=== PATIENT | male | born 1960 | race Caucasian/White ===

== ENCOUNTER → 2024-07-04 07:00 | Outpatient (REF) | payer OTHER, SELFPAY | LOC: DHCBC/DCA 07:00 | PROVIDERS: ATTENDING PHYSICIAN Internal Medicine Cardiovascular Disease; FAMILY PHYSICIAN Internal Medicine | DX: I25.10 Atherosclerotic heart disease of native coronary artery without angina pectoris (principal); I10 Essential (primary) hypertension | CPT/HCPCS: 78452; 93017; A9500; J2785 ==

== ENCOUNTER 2025-02-04 09:12 | Emergency (ER) | payer OTHER, SELFPAY ==
[2025-02-04 09:16] VITALS: BP 136/74
[2025-02-04] MEDS: VALIUM 5 MG PO (09:56)
[2025-02-04] MEDS: DECADRON 10 MG PO (09:56)
[2025-02-04] MEDS: TORADOL 30 MG IM (09:58)
--- NOTE | 2025-02-04 10:00 | ED.GENMED ---
History of Present Illness
General
Chief Complaint: Back Pain
Source: patient
Exam Limitations: none
Time Seen by Provider: 02/04/25 09:19
Nursing documentation reviewed up to this point in time: agreed with
History of Present Illness
History of Present Illness:
64-year-old male with history of HTN, renal failure with kidney transplant 9 years ago, hep C presents with gradually increasing left lower back pain over the past week with radiation down the left buttock. No recollection of overuse or injury
however he does play pickle ball on a consistent basis. The pain is worse with sitting or laying. It is relieved with standing and is now 2-3/10 while standing. He has been unable to sleep the past couple of nights due to the pain. Tylenol is
not helping. He denies loss of bowel or bladder control, weakness in his legs or saddle anesthesia. He denies fever or chills.
Past History
Past History
ED Past Medical History: HTN, Hypercholesterolemia and Other (ESRD, kidney transplant 08/10/2016 with a hepatitis C kidney)
ED Past Surgical History: None and Urological
Social History
Tobacco: Non-smoker
Alcohol: None
Drug: None
Personal:
Living: other (significant other)
Employment: Employed
Family History
Family History: CAD
Review of Systems
Review of Systems
Allergies reviewed?: Yes
All Other Systems: ROS reviewed and negative except as documented in HPI and ROS
Constitutional: Denies fever
Respiratory: Denies trouble breathing
Cardiac: Denies chest pain
ABD/GI: Denies abdominal pain or nausea
: Denies dysuria, frequency, incontinence or difficulty voiding
Musculoskeletal: Reports back pain (Left lower back and buttock)
Skin: Reports no symptoms
Neurological: Reports no symptoms
Phy Exam
Physical Exam
Physical Exam:
GENERAL: No acute distress. A&Ox3.
CONSTITUTIONAL: Afebrile.
EYES: clear, conjunctivae normal
ENMT: moist mucus membranes
RESPIRATORY: Regular respirations, nonlabored, lungs clear.
CARDIOVASCULAR: Regular rate and rhythm, no murmurs, no rubs.
GI: Soft, nontender, normal BS
MUSCULOSKELETAL: Tender to palpate just to the left of the lower lumbar spine, also the mid buttock area. Adequate range of motion of the spine with pain aggravated by rotating the torso toward the left. Negative bilateral straight leg raise.
Moves with ease. Well perfused.
SKIN: Warm, dry, pink
PSYCH: Normal mood and affect. Well kept, interactive and appropriate
NEUROLOGIC: Awake, alert and oriented. No focal neurological deficits. Strength equal throughout. Ambulates well with steady gait.
Course
Orders/Labs/Results
Orders:
Orders
02/04/25 09:39
Ketorolac [Toradol] 30 mg IM NOW STA
02/04/25 09:46
Dexamethasone [Decadron] 10 mg PO NOW STA
Diazepam [Valium] 5 mg PO NOW STA
Vital Signs
Initial and Last Documented VS:
Initial Vital Signs
Temp Pulse Resp BP Pulse Ox
97.6 F 74 16 136/74 98
02/04/25 09:16 02/04/25 09:16 02/04/25 09:16 02/04/25 09:16 02/04/25 09:16
Last Documented Vital Signs
Temp Pulse Resp BP Pulse Ox
97.6 F 74 16 136/74 98
02/04/25 09:16 02/04/25 09:16 02/04/25 09:16 02/04/25 09:16 02/04/25 09:16
MDM/Problems Addressed
Differential Diagnosis Includes:
low back strain, sciatica
MDM/Problems Addressed:
64-year-old male with history of HTN, renal failure with kidney transplant 9 years ago, hep C presents with gradually increasing left lower back pain over the past week with radiation down the left buttock. No recollection of overuse or injury
however he does play pickle ball on a consistent basis. The pain is worse with sitting or laying. It is relieved with standing and is now 2-3/10 while standing. He has been unable to sleep the past couple of nights due to the pain. Tylenol is
not helping. He denies loss of bowel or bladder control, weakness in his legs or saddle anesthesia. He denies fever or chills.
Afebrile, NAD
Hx and exam consistent with left low back strain and left sciatica
No neurological deficits. Ambulating well.
*Critical Care Note
Total Time (30-74mins, 75-104mins- exclusive of procedures): Not Applicable
ED Attending Note
-
Portions of this chart may have been created with voice recognition software.� Occasional wrong word or��sound alike� substitutions may have occurred due to the inherent limitations of voice recognition software.
Discharge Plan
Departure
Patient Disposition: Home (Routine Discharge)
Date of Disposition: 02/04/25
Time of Disposition: 10:18
Patient with high blood pressure during this ER visit?: No
Condition: Good
Discharge Problem:
Low back pain, Acute left-sided back pain with sciatica
Instructions: Low Back Pain (DC), Sciatica (DC)
Prescriptions:
New
cyclobenzaprine 10 mg tablet
10 mg PO TID PRN (Reason: back pain/spasms) Qty: 30 0RF
prednisone 20 mg tablet
40 mg PO DAILY Qty: 6 0RF
No Action
multivitamin 1 EACH tablet
1 ea PO DAILY
carvedilol [Coreg] 25 MG tablet
25 mg PO Q12
prednisone 5 MG tablet
5 mg PO DAILY
nifedipine 30 MG tablet extended release
30 mg PO DAILY
mycophenolate mofetil 500 MG tablet
250 mg PO BID
nifedipine 60 MG tablet extended release 24hr
60 mg PO HS
tacrolimus 1 MG capsule
1 mg PO DAILY
tacrolimus 1 MG capsule
0.5 mg PO HS
losartan 25 MG tablet
25 mg PO DAILY
atorvastatin 40 MG tablet
40 mg PO QPM Qty: 30 11RF
Rx Instructions:
Atorvastatin replaces pravastatin
aspirin 81 MG tablet,chewable
81 mg PO DAILY 0RF
ticagrelor [Brilinta] 90 MG tablet
90 mg PO BID Qty: 60 11RF
Referrals:
Your, Doctor [Other] - As needed
Activity Restrictions/Additional Instructions:
As we discussed, I sent a prescription to your pharmacy for prednisone to take 40 mg a day for 3 days. Start it tomorrow as you were given a dose of steroid here today
I also sent a prescription for Flexeril which is cyclobenzaprine, a muscle relaxant. Flexeril can make you sleepy and slow the reflexes so do not drive or operate any machinery within 8 hours of taking it.
Tylenol as needed for pain
See your doctor for recheck if you are not much improved within the next 10 to 14 days.
Interventions
Interventions:
*Risk Screen - Suicide Last Done: 02/04/25 09:16
*General Assessment Last Done: 02/04/25 10:09
*Neglect/Abuse Screening Last Done: 02/04/25 09:16
*ED- Fall Risk Assessment Last Done: 02/04/25 10:09
*ED COVID-19 Vaccine History Last Done: 02/04/25 10:09
*Nursing Disposition Last Done: 02/04/25 10:25
ED-Musculoskeletal Assessment Last Done: 02/04/25 10:09
Discharge Date and Time
Discharge Date/Time: 02/04/25 10:25
Print Language: COMORAN
== END 2025-02-04 10:25 | disposition home or self-care (01) ==
LOC: EMR 09:12
PROVIDERS: EMERGENCY PHYSICIAN Emergency Medicine
DX: M54.32 Sciatica, left side (principal); I12.0 Hypertensive chronic kidney disease with stage 5 chronic kidney disease or end stage renal disease; N18.6 End stage renal disease; E78.00 Pure hypercholesterolemia, unspecified; Z82.49 Family history of ischemic heart disease and other diseases of the circulatory system; Z86.19 Personal history of other infectious and parasitic diseases; Z92.3 Personal history of irradiation; Z94.0 Kidney transplant status
CPT/HCPCS: 99282; 96372

== ENCOUNTER → 2025-02-15 09:39 | Outpatient (REF) | payer OTHER, SELFPAY | LOC: HWRAD 09:39 | PROVIDERS: ATTENDING PHYSICIAN Student in an Organized Health Care Education/Training Program | DX: M25.552 Pain in left hip (principal) | CPT/HCPCS: 72202 ==

== ENCOUNTER 2025-05-10 06:07 | Inpatient (IN) | payer OTHER, SELFPAY ==
[2025-05-09 22:27] VITALS: BMI 31.5
[2025-05-09 22:29] VITALS: BP 177/87
[2025-05-09 23:16] VITALS: BP 174/68
--- NOTE | 2025-05-09 23:34 | ED.GENMED ---
History of Present Illness
General
Chief Complaint: Abdominal Pain
Source: patient
Exam Limitations: none
Time Seen by Provider: 05/09/25 23:10
Nursing documentation reviewed up to this point in time: agreed with
History of Present Illness
History of Present Illness:
The patient is a 64-year-old male with a history of renal transplant 10 years ago who presents with abdominal pain. The patient reports having an umbilical hernia for a couple of years, which has recently become painful since approximately 10:30 PM
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 The patient has not experienced any bowel movements and expresses difficulty with defecation, describing a feeling of constipation. Additionally, the patient reported
vomiting earlier today.
Past History
Past History
ED Past Medical History: HTN, Hypercholesterolemia and Other (ESRD, kidney transplant 08/10/2016 with a hepatitis C kidney)
ED Past Surgical History: None and Urological
Social History
Tobacco: Non-smoker
Alcohol: None
Drug: None
Personal:
Living: other (significant other)
Employment: Employed
Family History
Family History: CAD
Review of Systems
Review of Systems
Allergies reviewed?: Yes
All Other Systems: ROS reviewed and negative except as documented in HPI and ROS
Phy Exam
Physical Exam
Physical Exam:
GENERAL: Alert , in no apparent distress
EYE: pupils equal and reactive
NECK: Supple, no significant adenopathy.
ENT: o/p clr, mmm.
CARDIAC: Regular rate and rhythm .
LUNGS: Clear breath sounds bilaterally, no acute respiratory distress, no wheezes/rales/rhonchi
ABDOMEN:
NEUROLOGICAL: Alert and oriented, no focal neuro deficits
SKIN: Warm and dry, skin intact.
MUSCULOSKELETAL: No edema, well perfused.
PSYCH: Normal and appropriate interaction.
Umbilical hernia nonreducible very tender to palpation.
Course
Orders/Labs/Results
Orders:
Orders
05/09/25 23:35
Complete Blood Count/With Diff Urgent
Comprehensive Metabolic Panel Urgent
Lactic Acid Urgent
Urinalysis Reflex To Culture Urgent
0.9% Sodium Chloride 1000 ml [Nss] 1,000 ml IV BOLUS
HYDROmorphone [Dilaudid] 0.5 mg IV NOW STA
Iohexol [Omnipaque] See Protocol PO NOW STA
Ondansetron Injectable [Zofran] 4 mg IV NOW STA
05/10/25 02:00
CT Abd/pel W Iv And Oral Contr Urgent
Reason For Exam: umbilical hernia
05/10/25 02:45
Urinalysis Routine
Urine Microscopic Routine
05/10/25 02:51
HYDROmorphone [Dilaudid] 0.5 mg .ROUTE .STK-MED ONE
05/10/25 04:28
HYDROmorphone [Dilaudid] 0.5 mg IV NOW STA
05/10/25 04:34
Ondansetron Injectable [Zofran] 4 mg .ROUTE .STK-MED ONE
05/10/25 04:38
Ondansetron Injectable [Zofran] 4 mg IV NOW STA
Abnormal Lab Results
05/10/25 05/10/25
00:09 02:45
WBC 14.9 H 10^3/uL
(4.8-10.8)
MPV 13.4 H fL
(7.4-10.4)
Abs Immat Gran (auto) 0.1 H 10^3/uL
(0-0.05)
Absolute Neuts (auto) 12.7 H 10^3/uL
(1.4-6.5)
Absolute Monos (auto) 0.9 H 10^3/uL
(0.1-0.6)
Immature Gran % 0.7 H %
(0-0.5)
Neutrophils % 84.7 H %
(42.2-75.2)
Lymphocytes % 8.2 L %
(20.5-51.1)
Chloride 108 H mmol/L
(98-107)
BUN 23 H mg/dl
(9-20)
Glucose 143 H mg/dl
(70-99)
Calcium 11.1 H mg/dl
(8.4-10.2)
Urine Ketones 1+ A
(Negative)
Urine Bacteria Few A
(Negative)
Urine Albumin 1+ A
(Neg - Trace)
05/10/25 00:09
05/10/25 00:09
Vital Signs
Initial and Last Documented VS:
Initial Vital Signs
Temp Pulse Resp BP Pulse Ox
98.0 F 84 19 177/87 99
05/09/25 22:29 05/09/25 22:29 05/09/25 22:29 05/09/25 22:29 05/09/25 22:29
Last Documented Vital Signs
Temp Pulse Resp BP Pulse Ox
98.0 F 79 20 141/71 91
05/09/25 22:29 05/10/25 00:34 05/10/25 00:34 05/10/25 04:00 05/10/25 04:00
MDM/Problems Addressed
MDM/Problems Addressed:
1. Administer Zofran (ondansetron) for nausea.
2. Administer morphine for pain management, avoiding NSAIDs due to renal transplant history.
3. Perform a computed tomography (CT) scan with oral contrast to evaluate the hernia and potential bowel obstruction.
Initially hernia unable to be reduced with persisting pressure for multiple minutes to the area in Trendelenburg. CT scan performed confirming small bowel obstruction secondary to umbilical hernia. Case discussed with surgery. Reduction was again
tried was given additional pain meds prior and able to be reduced. Surgery was notified of this. Plan to admit to medicine for further monitoring and likely surgical assessment due to overlying skin changes and ecchymosis to the area.
*Critical Care Note
Total Time (30-74mins, 75-104mins- exclusive of procedures): Not Applicable
ED Attending Note
-
Portions of this chart may have been created with voice recognition software.� Occasional wrong word or��sound alike� substitutions may have occurred due to the inherent limitations of voice recognition software.
Discharge Plan
Departure
Date of Disposition: 05/10/25
Time of Disposition: 05:11
Admit to: Med/Surg
Admit to doctor: Lux
Presentation/result/management discussed w/ accepting MD/DO: Hospitalist
Patient with high blood pressure during this ER visit?: No
Condition: Good
Covid-19: Not Applicable
Prescriptions:
No Action
multivitamin 1 EACH tablet
1 ea PO DAILY
carvedilol [Coreg] 25 MG tablet
25 mg PO Q12
prednisone 5 MG tablet
5 mg PO DAILY
nifedipine 30 MG tablet extended release
30 mg PO DAILY
mycophenolate mofetil 500 MG tablet
250 mg PO BID
nifedipine 60 MG tablet extended release 24hr
60 mg PO HS
tacrolimus 1 MG capsule
1 mg PO DAILY
tacrolimus 1 MG capsule
0.5 mg PO HS
losartan 25 MG tablet
25 mg PO DAILY
atorvastatin 40 MG tablet
40 mg PO QPM Qty: 30 11RF
Rx Instructions:
Atorvastatin replaces pravastatin
aspirin 81 MG tablet,chewable
81 mg PO DAILY 0RF
ticagrelor [Brilinta] 90 MG tablet
90 mg PO BID Qty: 60 11RF
cyclobenzaprine 10 mg tablet
10 mg PO TID PRN (Reason: back pain/spasms) Qty: 30 0RF
prednisone 20 mg tablet
40 mg PO DAILY Qty: 6 0RF
Interventions
Interventions:
*Risk Screen - Suicide Last Done: 05/09/25 22:31
*General Assessment Last Done: 05/09/25 22:31
*Neglect/Abuse Screening Last Done: 05/09/25 22:31
*ED COVID-19 Vaccine History Last Done: 05/09/25 22:31
CF-Kjpypr-Atfechfpvx Assessment Last Done: 05/10/25 00:31
Discharge Date and Time
Print Language: ROMANSH
[2025-05-09] MEDS: DILAUDID 0.5 MG IV (23:57)
[2025-05-09] MEDS: OMNIPAQUE 50 ML PO (23:58)
[2025-05-09] MEDS: ZOFRAN 4 MG IV (23:58)
[2025-05-09] MEDS: NSS 1000 IV (23:59)
[2025-05-10] VITALS (18 sets, daily range): BP systolic 113–159; BP diastolic 56–78; BMI 29.2
[2025-05-10 00:28] LABS: Lactic Acid 0.8 mmol/L (0.7-2.0)
[2025-05-10 00:33] LABS: ALT (SGPT) 23 U/L (0-50); AST (SGOT) 24 U/L (17-59); Albumin 4.6 g/dl (3.5-5.0); Alkaline Phosphatase 70 U/L (38-126); Blood Urea Nitrogen 23 mg/dl (9-20); Calcium 11.1 mg/dl (8.4-10.2); Carbon Dioxide 23 mmol/L (22-30); Chloride 108 mmol/L (98-107); Estimated Creatinine Clearance 89 ml/min; Glucose 143 mg/dl (70-99); Potassium 4.1 mmol/L (3.5-5.1); Sodium 140 mmol/L (135-145); Total Bilirubin 0.9 mg/dl (0.2-1.3); Total Protein 7.5 g/dl (6.3-8.2); eGFR > 60.00
[2025-05-10 00:43] LABS: % Basophils 0.3 % (0-2); % Eosinophils 0.4 % (0-6); % Immature Granulocytes 0.7 % (0-0.5); % Lymphocytes 8.2 % (20.5-51.1); % Monocytes 5.7 % (1.7-9.3); % Neutrophils 84.7 % (42.2-75.2); Absolute Eosinophils 0.1 10^3/uL (0-0.7); Absolute Immature Granulocytes 0.1 10^3/uL (0-0.05); Absolute Lymphocytes 1.2 10^3/uL (1.2-3.4); Absolute Monocytes 0.9 10^3/uL (0.1-0.6); Absolute Neutrophils 12.7 10^3/uL (1.4-6.5); Hematocrit 47.6 % (39.0-52.0); Hemoglobin 16.8 g/dL (13.0-18.0); Mean Corp Hgb Conc. 35.3 g/dL (33.0-37.0); Mean Corpuscular Hgb 30.4 pg (27.0-31.0); Mean Corpuscular Volume 86.1 fL (80.0-94.0); Mean Platelet Volume 13.4 fL (7.4-10.4); Nucleated Red Blood Cells % 0 % (-); Platelet Count 191 10^3/uL (130-400); Red Blood Cell Count 5.53 10^6/uL (4.70-6.10); Red Cell Dist. Width 13.2 % (11.5-14.5); White Blood Cell Count 14.9 10^3/uL (4.8-10.8)
--- NOTE | 2025-05-10 04:25 | DOWNTIME ---
Addendum entered by Mamadou Bowling RN 05/10/25 14:05:
Correction to downtime 05/10/2025 from 0100 to 05/10/25 at 0415.
Original Note:
There was a [employer] Downtime on 05/09/2025 from 0100 to 05/10/2025 at 0415. Downtime documentation of patient's care, including medication administrations, has been reconciled in the electronic record per guidelines. Refer to the
patient's paper chart under the miscellaneous tab to see printed paper medication records and downtime forms.
--- NOTE | 2025-05-10 04:30 | EDRN ---
Ed, PA at bedside reducing hernia, was able to get it back in and contacting surgeon, patients pain is better at this time.
[2025-05-10] MEDS: DILAUDID 0.5 MG IV (04:36)
[2025-05-10] MEDS: ZOFRAN 4 MG IV (04:39)
[2025-05-10 05:02] LABS: Urine Albumin 1+ (Neg - Trace); Urine Bilirubin Negative (Negative); Urine Character Clear (Clear); Urine Color Yellow; Urine Glucose Negative (Negative); Urine Ketone 1+ (Negative); Urine Leukocyte Negative (Negative); Urine Nitrite Negative (Negative); Urine Occult Blood Negative (Negative); Urine Specific Gravity 1.015 (<1.030); Urine Urobilinogen Negative (Neg - 1+)
[2025-05-10 05:03] LABS: Urine Squamous Cell None seen /LPF (Few)
[2025-05-10 05:04] LABS: Urine Bacteria Few (Negative); Urine Red Blood Cell None Seen /HPF (0-2); Urine White Cell None Seen /HPF (0-5)
--- NOTE | 2025-05-10 05:58 | HPS.HSE ---
Family Physician
-
Family Physician: NOT KNOW UNKNOWN - PT DOES
Chief Complaint
-
Abd Pain
History of Present Illness
Patient is a 64y M with PMH significant for IgA nephropathy s/p renal transplant who presents to ED complaining of abdominal pain. Patient states that he has had an umbilical hernia since his transplant surgery in 2016. This has always been
soft, non-tender and easily reducible in the past. Around 8 AM on 05/09 patient noted protuberant hernia that was now firm and tender. He states that he had been doing a lot of heavy lifting / carrying at work over the past few days. His symptoms
persisted throughout the day with worsening pain, sense of constipation and ultimately nausea with emesis this evening. Patient presented to the ED for further evaluation and treatment.
Patient had CT scan done showing SBO secondary to incarcerated umbilical hernia.
Following the imaging, ED staff was able to reduce the hernia (prior attempts had been unsuccessful).
Patient notes that his symptoms are currently much improved.
Medical History
Past Medical History
Past Medical History: Reports Other
Additional Past Medical History:
IgA Nephropathy / ESRD
ASCVD
Hypertension
Past Surgical History: Reports Other
Additional Past Surgical History:
Renal Transplant (2016 - Hep C positive kidney, treated for Hep C post-transplant)
LUE AVF
PTCA with RCA Stent
Social History
Tobacco: Non-smoker
Alcohol: None
Drug: None
Family History
Family History: Not pertinent
Allergies / Home Medications
Allergies reflects when Allergies were last updated in [facility].
Home Medications with original date entered in [facility]
Allergy/Medication List:
Allergies
Allergy/AdvReac Type Severity Reaction Status Date / Time
No Known Allergies Allergy Verified 02/04/25 09:13
Home Medications
carvedilol 25 mg tablet (Coreg) 25 mg PO Q12 01/25/17
multivitamin 1 ea PO DAILY 01/25/17
mycophenolate mofetil 500 mg tablet 250 mg PO BID 01/25/17
nifedipine 30 mg tablet,extended release 30 mg PO BID 01/25/17
prednisone 5 mg tablet 5 mg PO DAILY 01/25/17
tacrolimus 1 mg capsule, immediate-release 0.5 mg PO HS 01/25/17
tacrolimus 1 mg capsule, immediate-release 1 mg PO DAILY 01/25/17
aspirin 81 mg chewable tablet 81 mg PO DAILY 03/20/18
atorvastatin 40 mg tablet 40 mg PO QPM ##30 03/20/18
losartan 25 mg tablet 25 mg PO DAILY 03/20/18
Review of Systems
-
History Source: Patient
A 12 point ROS was completed and negative except as noted: Yes
Constitutional: Denies Fever or Chills
Respiratory: Denies Cough or Trouble Breathing
Cardiac: Denies Chest Pain or Palpitations
Abdomen/GI: Reports Abdominal Pain, Nausea, Vomiting and Constipated; Denies Diarrhea
: Denies Dysuria or Frequency
Musculoskeletal: Denies Joint Pain or Edema
Neurological: Denies Dizzy or Headache
Psych: Denies Depression or Anxiety
Physical Exam
Vital Signs
Vital Signs
Temp Pulse Resp BP Pulse Ox
98.0 F 79 20 141/71 91
05/09/25 22:29 05/10/25 00:34 05/10/25 00:34 05/10/25 04:00 05/10/25 04:00
Physical Exam
General: Other (64y M in no acute distress.)
HEENT: Moist mucous membranes and PERRLA
Respiratory: Clear; No Wheezes, Rales or Rhonchi
Cardiac: S1/S2 and Regular Rhythm; No Murmur
GI: Other (Obese, mild erythema / ecchymosis ovr umbilicus. Soft, non-tender at present. Pos BS.)
Musculoskeletal: No Clubbing, No Cyanosis and No Edema
Neuro: AO x 3
Laboratory Results
-
05/10/25 00:09
05/10/25 00:09
Laboratory Results
Lactic Acid 0.8 mmol/L (0.7-2.0) 05/10/25 00:09
Total Bilirubin 0.9 mg/dl (0.2-1.3) 05/10/25 00:09
AST 24 U/L (17-59) 05/10/25 00:09
ALT 23 U/L (0-50) 05/10/25 00:09
Alkaline Phosphatase 70 U/L (38-126) 05/10/25 00:09
Impression/Plan
-
A/P: Patient is a 64y M with PMH significant for IgA nephropathy s/p renal transplant who presents to ED complaining of abdominal pain.
Incarcerated Umbilical Hernia
SBO secondary to the above
- Admit for further evaluation and treatment.
- Hernia ultimately able to be reduced in the ED.
- Monitor for any recurrence.
- Follow for passgae of flatus / BM or any recurrent N/V.
- Pain control / supportive care.
- Surgery evaluation this AM for additional recommendations.
IgA Nephropathy
Renal Transplant Status
- Stable. Renal function is normal.
- Continue current antirejection regimen without changes.
- Monitor for any changes in renal function.
- Avoid hypotension, nephrotoxic agents, etc.
ASCVD
- Stable. No current chest pain, dyspnea, etc.
- Continue ASA uninterrupted.
Benign Hypertension
- Stable. Continue current med regimen and adjust as needed.
DVT Prophylaxis: SCDs
Code Status: Full
--- NOTE | 2025-05-10 06:41 | EDRN ---
Surgeon is at bedside seeing patient at this time.
[2025-05-10] MEDS: DELTASONE 5 MG PO (08:31)
[2025-05-10] MEDS: NSS 1000 IV ×2 (08:31→21:21)
[2025-05-10] MEDS: LOW STRENGTH ASPIRIN 81 MG PO (08:31)
[2025-05-10] MEDS: CELLCEPT 250 MG PO ×2 (08:31→20:27)
[2025-05-10] MEDS: PROGRAF 1 MG PO (08:31)
--- NOTE | 2025-05-10 08:35 | CON.GS ---
Consultation
-
Date/Time Consultation Requested: 05/10/2025 4 AM
Date/Time Consultation Performed: 05/10/2025 6 AM
Requesting Provider: Dr. Ruslan Bloom
Performing Provider: Dr. Popeye Silver
Reason for Consultation: Incarcerated umbilical hernia
Medical History
-
Chief Complaint: Periumbilical pain
History of Present Illness:
This is a 64-year-old male with a history significant for IgA nephropathy status post remote renal transplant through a right lower quadrant oblique incision who presents to our hospital with 24 hours of worsening abdominal pain and bulging at his
known umbilical hernia. He endorses some nausea and vomiting. He does not believe that he has been passing gas that is unsure. He vomited his immunosuppression medications, and does not feel like he has taken them for roughly 24 hours.
He is on tacro 11/23
And MMF 250 twice daily.
Past Medical History
Past Medical History: Reviewed & Noncontributory
Past Surgical History: Reviewed & Noncontributory
Social History
Tobacco: Non-Smoker
Alcohol: None
Drug: None
Personal:
Living: With Family
Family History
Family History: Reviewed & Not Pertinent
Allergies / Home Medications
Allergy/AdvReac Type Severity Reaction Status Date / Time
No Known Allergies Allergy Verified 02/04/25 09:13
�Medication �Instructions �Recorded �Confirmed �Type
carvedilol 25 mg tablet (Coreg) 25 mg PO Q12 01/25/17 05/10/25 History
mycophenolate mofetil 500 mg tablet 250 mg PO BID 01/25/17 05/10/25 History
nifedipine 30 mg tablet,extended 30 mg PO BID 01/25/17 05/10/25 History
release
prednisone 5 mg tablet 5 mg PO DAILY 01/25/17 05/10/25 History
tacrolimus 1 mg capsule, 0.5 mg PO HS 01/25/17 05/10/25 History
immediate-release
tacrolimus 1 mg capsule, 1 mg PO DAILY 01/25/17 05/10/25 History
immediate-release
aspirin 81 mg chewable tablet 81 mg PO DAILY 03/20/18 05/10/25 Rx
atorvastatin 40 mg tablet 40 mg PO QPM ##30 03/20/18 05/10/25 Rx
losartan 25 mg tablet 25 mg PO DAILY 03/20/18 05/10/25 History
Review of Systems
-
All other systems: Negative unless noted
A 10 point review of systems was completed, and was negative except as per HPI.
Physical Exam
Vital Signs
Temp Pulse Resp BP Pulse Ox
98.1 F 79 16 154/78 97
05/10/25 07:40 05/10/25 07:40 05/10/25 07:40 05/10/25 07:40 05/10/25 07:40
05/09/25 05/10/25 05/11/25
06:59 06:59 06:59
Actual Weight 91 kg 84.567 kg
Body Mass Index (BMI) 29.2
Lab Results
05/10/25 00:09
05/10/25 00:09
WBC 14.9 10^3/uL (4.8-10.8) H 05/10/25 00:09
Hgb 16.8 g/dL (13.0-18.0) 05/10/25 00:09
Hct 47.6 % (39.0-52.0) 05/10/25 00:09
Plt Count 191 10^3/uL (130-400) 05/10/25 00:09
Abs Immat Gran (auto) 0.1 10^3/uL (0-0.05) H 05/10/25 00:09
Neutrophils % 84.7 % (42.2-75.2) H 05/10/25 00:09
Physical Exam
General: Well Developed
HEENT: Normocephalic
GI: Other (Soft, obese, mildly distended, periumbilical skin changes noted. Hernia reduced at bedside.)
Neuro: AO x 3
Data Reviewed
-
CT Scan: Image Personally Visualized and interpreted, Report Reviewed by me, Discussed with Physician, Discussed with Patient and Discussed with Family
Labs: Labs Reviewed by me, Discussed with Physician, Discussed with Patient and Discussed with Family
Total Time Spent with Patient (in minutes): 30
Assessment / Plan
-
This is a 64-year-old male status post renal transplant who presents with an incarcerated umbilical hernia, now reduced but given the duration of its incarceration and overlying skin threat, particular in the setting of immunosuppression would favor
early surgical intervention and repair.
Will plan for a robotic incarcerated umbilical hernia repair with possible mesh versus possible bowel resection.
N.p.o., IV fluids.
Can hold off on NG tube for now.
Check FK level
Antibiotics ordered on-call to the OR.
Immunosuppression and medical management per primary though I would expect an ileus and somewhat delayed bowel function
Risks/Benefits/Alternatives, expected postoperative course and possible complications (bleeding, infection, injury to surrounding structures, acute/chronic pain) discussed at length. Patient wishes to proceed with surgery. All questions answered.
Consent obtained.
I spent 75 minutes in total for the care of this patient today including direct patient care and counseling, reviewing labs, imaging, coordination of care, as well as documentation.
--- NOTE | 2025-05-10 08:40 | PTCARENOTE ---
Received patient from ED. Patient awaiting surgery for incarcerated umbilical hernia. NPO except medications/sips of clears. Patient typically takes three antihypertensives, clarified with Dr. Dubon about whether or not to administer
pre-operatively. MD ordered to hold.
--- NOTE | 2025-05-10 08:42 | W.SUR.PREOP ---
Pre-Operative Surgical Note
-
I have examined this patient prior to the performance of the scheduled procedure.
The patient's condition is unchanged from the time of the current History and
Physical and the patient is able to undergo the scheduled procedure.
--- NOTE | 2025-05-10 09:03 | W.PN.HOSP.TC ---
Today's Communication/Plan
-
For robotic incarcerated umbilical hernia repair.
Hold antihypertensives to avoid hypotension
Stress dose of hydrocortisone.
Postoperative follow-up depends on duration of expected postoperative ileus including antirejection and antihypertensives regimen management.
Assessment / Plan
Assessment / Plan
A/P: Patient is a 64y M with PMH significant for IgA nephropathy s/p renal transplant who presents to ED complaining of abdominal pain.
Incarcerated Umbilical Hernia
SBO secondary to the above
- Admit for further evaluation and treatment.
- Hernia ultimately able to be reduced in the ED.
- Monitor for any recurrence.
- Follow for passgae of flatus / BM or any recurrent N/V.
- Pain control / supportive care.
- Surgery input appreciated. Plan is for robotic incarcerated umbilical hernia repair with possible mesh versus possible bowel resection.
IgA Nephropathy
Renal Transplant Status
- Stable. Renal function is normal.
- Continue current antirejection regimen without changes.
-Hold antihypertensive medications prior to surgery to avoid hypotension. Stress dose of hydrocortisone.
ASCVD
- Stable. No current chest pain, dyspnea, etc.
- Continue ASA uninterrupted.
Benign Hypertension
- Stable. Continue current med regimen and adjust as needed.
DVT Prophylaxis: SCDs
Code Status: Full
Anticipated Discharge: > 48 hours
Subjective/Interval History
-
Date of Service: May 10, 2025
Objective Data
-
Labs:
Laboratory Results
05/10/25
00:09
WBC 14.9 H
Hgb 16.8
Hct 47.6
Plt Count 191
Sodium 140
Potassium 4.1
Chloride 108 H
Carbon Dioxide 23
BUN 23 H
Creatinine 0.9
Glucose 143 H
Calcium 11.1 H
Total Bilirubin 0.9
AST 24
ALT 23
Alkaline Phosphatase 70
Vital Signs:
Vital Signs
Temp Pulse Resp BP Pulse Ox
98.1 F 79 16 154/78 97
05/10/25 07:40 05/10/25 07:40 05/10/25 07:40 05/10/25 07:40 05/10/25 07:40
Physical Exam
-
General: Well Developed and No Apparent Distress
HEENT: Normocephalic, Atraumatic and Moist Mucous Membranes
Respiratory: Clear to Auscultation
Cardiac: Regular Rhythm and S1/S2; Negative Murmur, Rub or Gallop
GI: Soft, Nontender, Nondistended and Normal Bowel Sounds; Negative Organomegaly
Rectal: Deferred by Provider
Musculoskeletal: No Clubbing, No Cyanosis and No Edema
Skin: Negative Rash
Neuro: Nonfocal/Grossly Intact
[2025-05-10] MEDS: SOLU-CORTEF 100 MG IV (10:09)
--- NOTE | 2025-05-10 11:02 | CM ---
CM following re: discharge planning.
Reviewed pt's chart, met with pt and pt's spouse at bedside.
Pt is a 64 year old male, admitted with primary dx of Incarcerated Umbilical Hernia. SBO secondary to the above. Per MD plan is for robotic incarcerated umbilical hernia repair today with possible mesh versus possible bowel resection.
Pt reports he lives with spouse 2SH, 1 step to enter, has 6 supportive children. 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
[facility] [place]
Pharmacy: [facility]
D/c plan: home with anticipated no needs. Spouse to transport at discharge.
CM will follow with discharge plan updates as hospitalization progresses
--- NOTE | 2025-05-10 15:16 | W.IMMPOSTOP ---
Surgical Immed Post Op Note
-
Primary Surgeon: Popeye Silver MD
Assisting Surgeon: None
Pre-op Diagnosis: Incarcerated umbilical hernia
Post-op Diagnosis: Same
Procedure Performed: Robotic incarcerated umbilical hernia repair with mesh (EMILY approach)
Anesthesia Type: General
Specimen / Cultures: None
Estimated Blood Loss: 3 cc
Complications: None
Operative Findings: Left lateral dock x3 8 mm ports. We began by running the bowel with 2 Cardier graspers and identified the section of bowel that was herniated, it was hemorrhagic but otherwise viable and peristalsing so no bowel resection was
performed. We then performed our standard preperitoneal umbilical hernia repair. The defect measured 2 cm and was closed in the transverse direction with a 0 PDS symmetric. A 11 x 11 cm pocket was created and an 11 x 11 cm Bard soft uncoated
polypropylene mesh was fixated in 4 quadrants. The pocket was closed to exclude the mesh completely.
POST OP PLAN:
Imaging: None
Labs: Routine AM
Diet: Clears, will plan to advance to a low residue diet tomorrow
Analgesia: Tylenol 650mg q6 Abdifatah, Toradol as needed, Dilaudid 0.5mg q2h PRN
Neuro/vascular checks: q4h
AC/AP: Hold Therapeutic AC, Ok for DVT PPx
Activity: Ad Ernestina
Wound/Incisions/Drains: Routine
Abx: None
Dispo: RNF, dissipate discharge home tomorrow.
--- NOTE | 2025-05-10 15:19 | OR.RPT ---
Operative Report
Operative Report
Patient Name: Cristopher Corona
: 1960
Date of Operation: 05/10/2025
Preoperative Diagnosis: Incarcerated umbilical hernia
Postoperative Diagnosis: Same
Procedure(s):
Robotic incarcerated umbilical hernia repair with mesh (EMILY approach)
Surgeon(s):
Dr. Silver
Rivet Hammer Machine Operator(s):
TIERRA Ospina
Anesthesia: General
Estimated Blood Loss: 3 cc
Urine Output: None
Drains/Lines/Implants:
11 x 11 cm round Bard soft mesh
Specimens:
None
HPI/Surgical Indications:
This is a 64-year-old male with a history of a renal transplant through a right lower quadrant incision who presented to our hospital with periumbilical pain and found to have an incarcerated umbilical hernia containing bowel, that was eventually
reduced. Risks/Benefits/Alternatives were discussed at length, and the patient agreed to proceed with surgery.
Operative Findings: Left lateral dock x3 8 mm ports. We began by running the bowel with 2 Cardier graspers and identified the section of bowel that was herniated, it was hemorrhagic but otherwise viable and peristalsing so no bowel resection was
performed. We then performed our standard preperitoneal umbilical hernia repair. The defect measured 2 cm and was closed in the transverse direction with a 0 PDS symmetric. A 11 x 11 cm pocket was created and an 11 x 11 cm Bard soft uncoated
polypropylene mesh was fixated in 4 quadrants. The pocket was closed to exclude the mesh completely.
Procedure Description:
The patient was brought to the Operating Room and placed in the supine position with the arms tucked. IV antibiotics were infused and Venodyne stockings placed. Following uneventful induction of general endotracheal anesthesia, an orogastric tube
was placed. The abdomen was prepped and draped in the usual sterile fashion. The abdomen was entered using a Veress technique which required 1 pass, pneumoperitoneum to 15 mmHg was obtained without difficulty. An 8mm trochar was passed through the
abdominal wall roughly 20 cm laterally from the defect in the left upper quadrant, we then confirmed that no inadvertent injury was made while passing the trocar or Veress needle. We then placed two additional 8 mm ports in the left lower quadrant.
Bilateral tap blocks were performed. The robot was docked. We then introduced a cardier through the inferior/left hand port and superior ports. There were no intra-abdominal adhesions and a bulge in the right lower quadrant sidewall could be
appreciated. We began running the small bowel until we found a 3 cm area of hemorrhagic/inflamed bowel however thankfully this was peristalsing and appeared completely viable. I also had little concern for stricture developing as the diameter of
the bowel appeared normal in size. We then turned our attention to the hernia which had no intra-abdominal contents. We then began taking a flap down roughly 6 cm away from the defect and roughly 11 cm in length taking care to stay in the
pretransversalis plane. The preperitoneal fat was taken down off of the posterior rectus sheath both superior and inferior to the hernia defect such that we were able to get our 'volcano sign'. We then worked on reducing the defect which contained
preperitoneal fat and continued our dissection out laterally for an additional 6 to 7 cm. Once our flap was created we introduced a ruler and a 0 PDS symmetric. The main hernia defect measured 2 cm. The pocket measured 11 x 11 cm. I had my
assistant chief nursing officer cut a 11 x 11 cm piece of Bard soft mesh marked with 0 Vicryl suture at the center, as I closed the umbilical defect. The mesh was then sutured to the posterior rectus sheath in 4 quadrants with 2-0 vircyls to ensure good apposition. A
2-0 Monocryl was introduced which was used to close our flap. All sutures were removed. The robot was undocked. The ports were removed under direct visualization and pneumoperitoneum was evacuated. The port sites were closed with 4-0 Monocryl
followed by Dermabond. Counts were correct and overall, the patient tolerated the procedure well and was taken to the Recovery Room postoperatively in stable condition.
I was the attending physician and performed the procedure with assistance from the ONYX CHIP TERRAZZO WORKER above. I was present for all portions of the case except for skin closure.
Popeye Silver MD
--- NOTE | 2025-05-10 16:00 | PTCARENOTE ---
Pt back in room after robotic umbilical hernia repair with mesh. VSS, pt denies pain or nausea at this time. Lap sites glued and open to air. Pt encouraged to order clear liquids.
[2025-05-10] MEDS: LIPITOR 40 MG PO (17:09)
[2025-05-10] MEDS: TYLENOL 650 MG PO (17:11)
[2025-05-10] MEDS: PROGRAF 0.5 MG PO (20:27)
[2025-05-11 05:00] VITALS: BP 152/79
[2025-05-11 06:23] LABS: Hematocrit 41.7 % (39.0-52.0); Hemoglobin 14.3 g/dL (13.0-18.0); Mean Corp Hgb Conc. 34.3 g/dL (33.0-37.0); Mean Corpuscular Hgb 29.7 pg (27.0-31.0); Mean Corpuscular Volume 86.5 fL (80.0-94.0); Mean Platelet Volume 13.4 fL (7.4-10.4); Platelet Count 154 10^3/uL (130-400); Red Blood Cell Count 4.82 10^6/uL (4.70-6.10); Red Cell Dist. Width 13.4 % (11.5-14.5); White Blood Cell Count 11.3 10^3/uL (4.8-10.8)
[2025-05-11 06:24] LABS: Blood Urea Nitrogen 17 mg/dl (9-20); Calcium 9.6 mg/dl (8.4-10.2); Carbon Dioxide 21 mmol/L (22-30); Chloride 111 mmol/L (98-107); Estimated Creatinine Clearance 87 ml/min; Glucose 151 mg/dl (70-99); Potassium 4.3 mmol/L (3.5-5.1); Sodium 139 mmol/L (135-145); eGFR > 60.00
[2025-05-11 07:00] VITALS: BP 144/82
[2025-05-11] MEDS: NSS 1000 IV (07:27)
[2025-05-11] MEDS: LOW STRENGTH ASPIRIN 81 MG PO (08:10)
[2025-05-11] MEDS: CELLCEPT 250 MG PO (08:10)
[2025-05-11] MEDS: PROGRAF 1 MG PO (08:10)
--- NOTE | 2025-05-11 08:31 | W.PN.GS2 ---
Today's Communication / Plan
-
Advance diet.
Dispo planning
Assessment / Plan
-
This is a 64-year-old male with a history of a renal transplant who presented with a small bowel obstruction secondary to an incarcerated umbilical hernia now POD #1 robotic incarcerated umbilical hernia repair with mesh. Doing well, expected
postoperative course.
On clears, will advance to a low residue diet for lunch.
Awaiting more robust return of bowel function, but anticipate discharge home later today versus tomorrow.
Okay for oral immunosuppression medication.
Tacro level pending.
Remainder of care per primary
Time Spent
Total Time Spent with Patient (in minutes): 20
Subjective Data
-
Date of Service: May 11, 2025
Interval Events:
No acute events overnight. Slept well. Pain Controlled. Denies Nausea/Vomiting, minimal bowel function. Tolerating diet.
Objective Data
-
Intake and Output
05/10/25 05/11/25 05/12/25
06:59 06:59 06:59
Intake Total 460 / 460
Balance 460 / 460
Intake:
Oral fluids 360 / 360
IV fluids (Total) 100 / 100
Normosol 100 / 100
Other:
Number of approximated MODERATE 2
amounts of urine
Vital Signs
Temp Pulse Resp BP Pulse Ox
97.7 F 72 14 144/82 95
05/11/25 07:00 05/11/25 07:00 05/11/25 07:00 05/11/25 07:00 05/11/25 07:00
Lab Results
05/11/25 05:24
05/11/25 05:24
Calcium 9.6 mg/dl (8.4-10.2) D 05/11/25 05:24
Total Bilirubin 0.9 mg/dl (0.2-1.3) 06/18/25 00:09
AST 24 U/L (17-59) 05/10/25 00:09
ALT 23 U/L (0-50) 05/10/25 00:09
Alkaline Phosphatase 70 U/L (38-126) 05/10/25 00:09
Total Protein 7.5 g/dl (6.3-8.2) 05/10/25 00:09
Albumin 4.6 g/dl (3.5-5.0) 05/10/25 00:09
Physical Exam
-
GENERAL/NEURO: Awake, Alert, no distress
CHEST: Unlabored breathing on RA
ABDOMEN: Soft, Non-Tender, incisions clean dry and intact. Mildly distended.
Patient has a bailey catheter: No
Patient has a central line: No
[2025-05-11 11:00] VITALS: BP 153/64
--- NOTE | 2025-05-11 12:52 | CM ---
Addendum entered by Girish Nguyen 05/11/25 13:59:
Discharge order noted.
Both pt and his spouse are aware, expressed their agreement with discharge.
No after care VN services indicated.
D/C plan: home no needs. Spouse to transport.
Original Note:
CM following re: discharge planning.
Reviewed pt's chart, met with pt and pt's spouse at bedside.
Pt is POD #1 robotic incarcerated umbilical hernia repair with mesh. Doing well, expected postoperative course.
Pt lives with spouse 2SH, 1 step to enter, has 6 supportive children and pt is independent in all areas SANITARY INSPECTOR, drives, works.
D/c plan: home with anticipated no needs. Spouse to transport at discharge.
CM will follow with discharge plan updates as hospitalization progresses
--- NOTE | 2025-05-11 13:42 | W.DS.TRANS ---
DC Summary - Die Sinking Machine Operator
-
Discharge Instructions:
Discharge Diagnosis/Procedures Incarcerated umbilical hernia. Robotic
incarcerated umbilical hernia repair with mesh.
Diet Low Fiber
Activity No strenuous activity
Driving Restrictions As prior to admission
Bathing Restrictions OK to Shower
Instructions:
Stand-Alone Forms:
Changes to Home Medications: No
Discharge Medications:
DC Medications w/original date entered in [facility]
carvedilol 25 mg tablet (Coreg) 25 mg PO Q12 01/25/17
mycophenolate mofetil 500 mg tablet 250 mg PO BID 01/25/17
nifedipine 30 mg tablet,extended release 30 mg PO BID 01/25/17
prednisone 5 mg tablet 5 mg PO DAILY 01/25/17
tacrolimus 1 mg capsule, immediate-release 0.5 mg PO HS 01/25/17
tacrolimus 1 mg capsule, immediate-release 1 mg PO DAILY 01/25/17
aspirin 81 mg chewable tablet 81 mg PO DAILY 03/20/18
atorvastatin 40 mg tablet 40 mg PO QPM ##30 03/20/18
losartan 25 mg tablet 25 mg PO DAILY 03/20/18
acetaminophen 325 mg tablet 650 mg (2 x 325 mg) PO Q4HPRN PRN Mild Pain / Temp > 101 #30 tabs 05/11/25
Home Medication Changes
Pending Results: No
--- NOTE | 2025-05-11 14:40 | PTCARENOTE ---
Pt tolerated low residue diet with no pain.
[2025-05-11 14:43] VITALS: BP 129/59
== END 2025-05-11 15:27 | disposition home or self-care (01) | DRG 354 ==
LOC: 2 SOUTH 06:07
PROVIDERS: Physician Assistant; ADMITTING PHYSICIAN Hospitalist; ATTENDING PHYSICIAN Internal Medicine; CONSULT PHYSICIAN Surgery; EMERGENCY PHYSICIAN Student in an Organized Health Care Education/Training Program
PROC: 8E0W4CZ Robotic Assisted Procedure of Trunk Region, Percutaneous Endoscopic Approach (ICD-10-PCS; 2025-05-10)
PROC: 0WUF0JZ Supplement Abdominal Wall with Synthetic Substitute, Open Approach (ICD-10-PCS; 2025-05-10)
DX: K42.0 Umbilical hernia with obstruction, without gangrene (principal); D84.821 Immunodeficiency due to drugs; N02.B1 Recurrent and persistent immunoglobulin A nephropathy with glomerular lesion; Z94.0 Kidney transplant status; I25.10 Atherosclerotic heart disease of native coronary artery without angina pectoris; I10 Essential (primary) hypertension; Z79.621 Long term (current) use of calcineurin inhibitor; Z79.624 Long term (current) use of inhibitors of nucleotide synthesis; Z79.82 Long term (current) use of aspirin; Z79.899 Other long term (current) drug therapy
CPT/HCPCS: 74177; 80048; 80053; 80197; 81003; 81015; 83605; 85025; 85027; 93005; 96361; 96374; 96375; 96376; 99285; C1781; Q9967

== ENCOUNTER → 2025-09-14 07:08 | Outpatient (REF) | payer OTHER, SELFPAY | LOC: HWRCS 07:08 | PROVIDERS: ATTENDING PHYSICIAN Internal Medicine Cardiovascular Disease; FAMILY PHYSICIAN Student in an Organized Health Care Education/Training Program | DX: I37.0 Nonrheumatic pulmonary valve stenosis (principal) | CPT/HCPCS: 93306 ==